=== PATIENT | female | born 1980 | race African-American/Black ===

== ENCOUNTER 2018-03-25 15:10 | Emergency (ER) | payer OTHER ==
[~2018-03-25] VITALS: Ht 175.3 cm; Wt 120.2 kg
[2018-03-25 15:11] VITALS: BP 131/78
[2018-03-25] MEDS ORDERED: NORCO 5-325 TA1 EACH PO (16:43)
== END 2018-03-25 16:55 | disposition home or self-care (01) ==
LOC: ER 15:10
DX: S83.91XA Sprain of unspecified site of right knee, initial encounter (principal); S83.92XA Sprain of unspecified site of left knee, initial encounter; S16.1XXA Strain of muscle, fascia and tendon at neck level, initial encounter; S01.511A Laceration without foreign body of lip, initial encounter; J45.909 Unspecified asthma, uncomplicated; M19.90 Unspecified osteoarthritis, unspecified site; F17.210 Nicotine dependence, cigarettes, uncomplicated; V49.49XA Driver injured in collision with other motor vehicles in traffic accident, initial encounter; Y93.89 Activity, other specified; Y92.89 Other specified places as the place of occurrence of the external cause; Y99.8 Other external cause status